=== PATIENT | male | born 1945 | race Caucasian/White ===

== ENCOUNTER 2019-05-20 09:58 | Outpatient (REF) | payer MEDICARE, SELFPAY ==
[2019-05-20 20:03] LABS: COMMENT (LAB VIEW ONLY) 101.34 mg/dL; Microalb ug/mg Crea 300.8 ug/mg Cr
== END 2019-05-20 10:18 ==
LOC: NCHCN 09:58
PROVIDERS: PCP Internal Medicine; Visit Provider Nurse Practitioner Family
DX: E11.9 Type 2 diabetes mellitus without complications (principal)
CPT/HCPCS: 82043; 82570

== ENCOUNTER 2021-07-20 16:21 | Outpatient (REF) | payer MEDICARE, SELFPAY ==
[2021-07-20 20:20] LABS: HCT 42.6 % (40.0-50.0); HGB 14.1 g/dL (13.5-17.5); MCH 31.5 pg (27.0-33.0); MCHC 33.1 % (32.0-36.0); MCV 95.1 fL (80-95); MPV 9.8 fL (8.0-11.0); Platelet Count 232 10^3/uL (130-400); RBC 4.48 10^6/uL (4.36-5.78); RDW 12.8 % (11.8-14.1); RDW-SD 44.9 fL; WBC 6.36 10^3/uL (4.4-10.8)
[2021-07-20 20:58] LABS: Anion Gap 13.4 mmol/L (3-11); BUN 19 mg/dL (7-18); CO2 25.6 mmol/L (21.0-32.0); Calcium 9.1 mg/dL (8.5-10.1); Chloride 103 mmol/L (98-107); Glucose 190 mg/dL (74-106); Potassium 4.1 mmol/L (3.5-5.1); Sodium 142 mmol/L (136-145); TSH 0.17 uIU/mL (0.36-3.74); Vitamin B12 287 pg/mL (193-986)
== END 2021-07-20 16:22 | disposition home or self-care (01) ==
LOC: NCHCN 16:21
PROVIDERS: PCP Internal Medicine; Visit Provider Internal Medicine
DX: I10 Essential (primary) hypertension (principal); G31.84 Mild cognitive impairment of uncertain or unknown etiology; E11.9 Type 2 diabetes mellitus without complications
CPT/HCPCS: 80048; 85027; 82607; 84443

== ENCOUNTER 2022-05-11 16:22 | Outpatient (REF) | payer MEDICARE, SELFPAY ==
[2022-05-11 19:40] LABS: ALT 31 U/L (16-63); AST 20 U/L (15-37); Albumin 3.7 g/dL (3.4-5.0); Alkaline Phosphatase 51 U/L (46-116); Anion Gap 10.5 mmol/L (3-11); BUN 25 mg/dL (7-18); Bilirubin, Total 0.3 mg/dL (0.2-1.0); CO2 26.5 mmol/L (21.0-32.0); CREATININE 0.9 mg/dL (0.70-1.30); Calcium 8.9 mg/dL (8.5-10.1); Calculated LDL 36 mg/dL (<100); Chloride 102 mmol/L (98-107); Cholesterol 128 mg/dL (<200); Glucose 189 mg/dL (74-106); HDL Cholesterol 65 mg/dL (40-60); Potassium 4.2 mmol/L (3.5-5.1); Sodium 139 mmol/L (136-145); TSH 0.06 uIU/mL (0.36-3.74); Total Protein 7.6 g/dL (6.4-8.2); Triglyceride 138 mg/dL (<150)
[2022-05-11 19:57] LABS: Creatine Kinase 209 U/L (39-308)
== END 2022-05-11 16:23 | disposition home or self-care (01) ==
LOC: NCHCN 16:22
PROVIDERS: PCP Internal Medicine; Visit Provider Internal Medicine
DX: I10 Essential (primary) hypertension (principal); E78.5 Hyperlipidemia, unspecified; E05.90 Thyrotoxicosis, unspecified without thyrotoxic crisis or storm
CPT/HCPCS: 80053; 80061; 82550; 84443

== ENCOUNTER 2022-07-12 15:51 | Outpatient (REF) | payer MEDICARE, SELFPAY ==
[2022-07-13 10:37] LABS: FREE T4 0.83 ng/dL (0.76-1.46); TSH 1.33 uIU/mL (0.36-3.74)
== END 2022-07-12 15:52 | disposition home or self-care (01) ==
LOC: NCHCN 15:51
PROVIDERS: PCP Internal Medicine; Visit Provider Internal Medicine
DX: E05.90 Thyrotoxicosis, unspecified without thyrotoxic crisis or storm (principal)
CPT/HCPCS: 84439; 84443

== ENCOUNTER 2023-06-25 18:14 | Outpatient (REF) | payer MEDICARE, SELFPAY ==
[2023-06-25 20:00] LABS: Anion Gap 10.4 mmol/L (3-11); BUN 31 mg/dL (7-18); CO2 26.6 mmol/L (21.0-32.0); CREATININE 1.3 mg/dL (0.70-1.30); Calculated LDL 42 mg/dL (<100); Chloride 105 mmol/L (98-107); Cholesterol 118 mg/dL (<200); Estimated GFR 56.58 (mL/min/1.73m2); Glucose 176 mg/dL (74-106); HDL Cholesterol 58 mg/dL (40-60); Potassium 4.3 mmol/L (3.5-5.1); Sodium 142 mmol/L (136-145); Triglyceride 92 mg/dL (<150)
[2023-06-25 20:11] LABS: Creatine Kinase 98 U/L (39-308)
== END 2023-06-25 18:15 | disposition home or self-care (01) ==
LOC: NCHCN 18:14
PROVIDERS: PCP Internal Medicine; Visit Provider Internal Medicine
DX: E78.5 Hyperlipidemia, unspecified (principal); I10 Essential (primary) hypertension; E05.90 Thyrotoxicosis, unspecified without thyrotoxic crisis or storm
CPT/HCPCS: 80048; 80061; 82550; 84443